=== PATIENT | male | born 1980 | race Hispanic/Latino ===

== ENCOUNTER 2018-04-16 17:26 | Emergency (ER) | payer OTHER ==
[~2018-04-16] VITALS: Ht 175.3 cm; Wt 116.6 kg
[2018-04-16 19:10] VITALS: BP 150/88
--- NOTE | 2018-04-16 19:29 | Diagnostic Imaging Report ---
EXAM: XR CHEST 1 VIEW DATE: 04/16/2018 7:04 PM INDICATION: COMPARISON: None FINDINGS: Lines and Tubes: None Heart and Mediastinum: No acute cardiomediastinal findings. Lungs and Pleura: No significant pleural effusion, pneumothorax, or focal consolidation. Bones and Soft Tissues: No acute findings. IMPRESSION: 1. No acute cardiopulmonary findings. Signed by: Dr. Dread Chandler MD on 04/16/2018 7:25 PM
== END 2018-04-16 19:14 | disposition home or self-care (01) ==
LOC: FSED 17:26
DX: R07.89 Other chest pain (principal); K21.9 Gastro-esophageal reflux disease without esophagitis; F17.210 Nicotine dependence, cigarettes, uncomplicated
CPT/HCPCS: 71045; 80053; 84484; 85025; 93005; 99283